=== PATIENT | female | born 1940 | race Caucasian/White ===

== ENCOUNTER 2017-09-28 21:46 | Observation (INO) | payer OTHER, MEDICARE ==
[~2017-09-28] VITALS: Ht 149.9 cm; Wt 73.1 kg
[~2017-09-28 21:46] MED LIST: BACTRIM DS 8001 TAB PO; FLAG500 PO; LIPITOR20 MG PO; LOPRESSOR 25MG25 MG PO; Zetia PO
--- NOTE | 2017-09-28 22:16 | ED AMS/SEIZURE/WEAK/DIZZY ---
See Addendum History of Present Illness General Chief Complaint: Altered Mental Status Stated Complaint: AMS Source: patient, family Exam Limitations: confusion Vital Signs & Intake/Output Vital Signs & Intake/Output Vital Signs Date Time Temp Pulse Resp B/P B/P Pulse O2 O2 Flow FiO2 Mean Ox Delivery Rate 09/28 2339 65 16 186/86 96 Room Air Room Air 09/28 2304 Room Air 09/28 2245 80 204/96 09/28 2210 98.1 80 24 204/96 99 Room Air Room Air Allergies Coded Allergies: Penicillins (Intermediate, HIVES 09/28/17) Reconcile Medications Atorvastatin (Atorvastatin Calcium) 20 MG TAB 20 MG PO 1700 Cholestrol Metoprolol Tartrate (Lopressor) 25 MG TAB 25 MG PO BID Heart health Metronidazole (Flagyl) 500 MG TAB 500 MG PO TID DOG BITE Sulfamethoxazole/Trimethopri (Bactrim Ds 800 MG-160 MG) 1 TAB TAB 1 TAB PO BID LEFT THIGH DOG BITE TAKE WTIH FOOD [Zetia] 10 MG PO 1700 Triage Note: PT BROUGHT DIRECTLY TO 6 FOR AMS. DAUGHTER TAVARES STATES THIS MORNING PT WAS CONFUSED ON THE DAY. PT RECENTLY HAD NECK PAIN AND RX BACLOFEN AND MELOXICAM 1 WEEK PRIOR AND APPEARS SHE HAS DOUBLED UP ON TAKING MELOXICAM. PT UNSURE WHERE SHE IS, SHE KNOWS THE MONTH, AND CAN'T REMEMBER THE PRESIDENT. Triage Nurses Notes Reviewed? yes Onset: Gradual Duration: constant Timing: single episode today Severity: moderate Severity Numbers: 5 No Modifying Factors: none HPI: patient is a 76-year-old female with a past medical history of hypertension and hyperlipidemia in which she presents emergency room with family where patient lives with her in the in law suite with her son and family and which history is limited due to patient having confusion however family indicates that approximately one week ago she was given meloxicam and baclofen for her neck discomfort and pain where today patient has concerns of confusion and is disoriented more than usual. FAMILY does indicate that there is been a slow progression of confusion however today significantly has worsened. No unilateral extremity weakness or slurred speech or facial droop. Family is concerned of the meloxicam and baclofen being taken incorrectly where they're concerned of 5 meloxicam's taken the past 24 hours instead of the baclofen which is 3 times a day in the meloxicam is 1 time a day where patient self administers the medications. Patient does complain of chest pain to the right chest wall earlier today however this has resolved. Denies any fever chills headache blurred vision current chest pain nausea vomiting dysuria hematuria. (Landon Merlos) Past History Medical History Any Pertinent Medical History? see below for history Cardiovascular: hypertension, hyperlipidemia Surgical History Surgical History: skin graft Psychosocial History What is your primary language Macedonian Family History Family History, If Any: MOTHER FH: myocardial infarction SISTER FH: brain tumor FATHER FH: colon cancer Hx Contributory? No (Landon Merlos) Review of Systems Review of Systems Constitutional: Reports: no symptoms. EENTM: Reports: no symptoms. Respiratory: Reports: no symptoms. Cardiovascular: Reports: see HPI, chest pain. GI: Reports: no symptoms. Genitourinary: Reports: no symptoms. Musculoskeletal: Reports: see HPI. Skin: Reports: no symptoms. Neurological/Psychological: Reports: see HPI. Hematologic/Endocrine: Reports: no symptoms. Immunologic/Allergic: Reports: no symptoms. All Other Systems: Reviewed and Negative (Landon Merlos) Physical Exam Physical Exam General Appearance: no apparent distress, alert Head: atraumatic Eyes: Bilateral: normal appearance, PERRL, EOMI. Ears, Nose, Throat: normal pharynx, normal ENT inspection Neck: normal inspection, supple, full range of motion Respiratory: normal breath sounds Cardiovascular: regular rate/rhythm Peripheral Pulses: 2+ radial (R) Gastrointestinal: normal bowel sounds, soft, non-tender Extremities: normal range of motion Neurologic/Psych: no motor/sensory deficits, awake, disoriented x 3 Skin: intact, normal color, warm/dry Core Measures ACS in differential dx? Yes CVA/TIA Diagnosis No Sepsis Present: No Sepsis Focused Exam Completed? No (Landon Merlos) Progress Differential Diagnosis: arrythmia, alcohol intoxication, anemia, benign positional vertigo, CVA/stroke, dehydration, drug intoxication, encephalitis, electrolyte imbalance, GI bleed, hypoglycemia, hypoxia, intracranial Hem., intracranial mass/tumor, labrynthitis, meningitis, Meniere's disease, migraine [place], multiple sclerosis, pneumonia, postural hypotension, presyncope, post- traumatic vertigo, sepsis, seizure disorder, subarachnoid Hem., UTI/pyelo, vertebrobasilar insuff Plan of Care: Orders Procedure Date/time Status Heart Healthy Diet 09/[address] in observation 09/29 56 Active ED Holding Orders 09/29 005 Active Vital Signs 09/29 56 Active Code Status 09/29 005 Active Patient Data 09/29 0039 Active URINALYSIS 09/29 2227 Active TROPONIN LEVEL 09/29 2227 Complete D-DIMER 09/29 2227 Complete COMPREHENSIVE METABOLIC PANEL 09/29 2227 Complete CBC WITHOUT DIFFERENTIAL 09/29 2227 Complete EKG 09/28 2149 Active Laboratory Tests 09/28/17 2359: Urine Color Pending, Urine Clarity Pending, Urine pH Pending, Ur Specific [place] Pending, Urine Protein Pending, Urine Ketones Pending, Urine Nitrite Pending, Urine Bilirubin Pending, Urine Urobilinogen Pending, Ur Leukocyte Esterase Pending, Ur Microscopic Pending, Urine Hemoglobin Pending, Urine Glucose Pending 09/28/17 2235: Anion Gap 9, Estimated GFR > 60, BUN/Creatinine Ratio 30.0 H, Glucose 113 H, Calcium 9.1, Total Bilirubin 0.4, AST 27, ALT 26, Alkaline Phosphatase 73, Troponin I 0.05, Total Protein 6.6, Albumin 3.6, Globulin 3.0, Albumin/Globulin Ratio 1.2, D-Dimer High Sensitivty < 200, CBC w Diff NO MAN DIFF REQ, RBC 4.72, MCV 91.4, MCH 30.3, MCHC 33.2, RDW 13.6, MPV 8.8, Gran % 44.7, Lymphocytes % 45.2, Monocytes % 6.8, Eosinophils % 2.9, Basophils % 0.4, Absolute Granulocytes 3.2, Absolute Lymphocytes 3.3, Absolute Monocytes 0.5, Absolute Eosinophils 0.2, Absolute Basophils 0 Patient is disoriented 3 however is following all commands appropriately no signs of neurovascular deficit Due to history of has noticing exam findings or suspicion of adverse drug interaction due to the recently prescribed baclofen Blood work imaging was all unremarkable Patient will be placed in observation Diagnostic Imaging: Viewed by Me: Radiology Read, CT Scan. Radiology Impression: no acute abnormality, no fracture Initial ED EKG: normal intervals, normal p-waves, normal QRS complex, 84 BPM,NSR Comments: PATIENT: TIMOTHY SMITH PRESENT AGE: 76 PATIENT ACCOUNT NO: [id number] : 38 LOCATION: [facility] ORDERING PHYSICIAN: Landon JORDAN SERVICE DATE: 09/28/17 EXAM TYPE: RAD - XRY-CHEST XRAY, TWO VIEWS EXAMINATION: XR CHEST CLINICAL INFORMATION: Chest pain. COMPARISON: Chest x-ray 01/20/2015 TECHNIQUE: 2 views of the chest were obtained. FINDINGS: No significant abnormality is noted involving the heart, lungs, mediastinum, bony thorax or soft tissues. IMPRESSION: Unremarkable examination. DICTATED BY: Capo Dunlap MD DATE/TIME DICTATED:09/28/172319 EDGE RUNNER:FRANK (Rich JORDAN,Landon) Departure Departure Disposition: STILL A PATIENT Condition: Stable Clinical Impression Primary Impression: Altered mental state Secondary Impressions: Adverse drug interaction Referrals: Sabino Finch MD (PCP/Family) Departure Forms: Customer Survey General Discharge Information Observation Note Spoke With: Kenzie Quijano MD Physician Advisor Notified: ANDERSON RECINOS DO Place Patient In: Non-ED OBS Care Area Rationale for Observation: My rational for observation is as follows [patient requires observation for concerns of adverse drug interaction and altered mental status urine still pending patient may require case management consultation home health aides neurology consultation geriatric psych consultation]. (Landon Merlos) Observation Note Rationale for Observation: My rational for observation is as follows The patient had an episode of chest pain earlier today and has been confused. EKG shows nonspecific ST-T wave abnormality but somewhat changed. She is therefore being placed in observation and on telemetry. I have seen the patient and personally examined her and I agree with the PAs evaluation (Anderson Recinos DO)
[2017-09-28 22:44] LABS: ABSOLUTE BASOPHIL COUNT 0 /CUMM (0.0-0.2); ABSOLUTE EOSINOPHIL COUNT 0.2 /CUMM (0.0-0.7); ABSOLUTE GRANULOCYTE CT 3.2 /CUMM (1.4-6.5); ABSOLUTE LYMPH COUNT 3.3 /CUMM (1.2-3.4); ABSOLUTE MONOCYTE COUNT 0.5 /CUMM (0.10-0.60); BASOPHIL % 0.4 % (0.0-2.0); EOSINOPHIL % 2.9 % (0-5); GRANULOCYTE % 44.7 % (42.2-75.2); HEMATOCRIT 43.1 % (37-47); MEAN CORPUSCULAR HGB 30.3 PG (27.0-31.0); MEAN CORPUSCULAR HGB CONC 33.2 G/DL (33.0-37.0); MEAN CORPUSCULAR VOLUME 91.4 FL (81.0-99.0); MEAN PLATELET VOLUME 8.8 FL (7.4-10.4); PLATELET COUNT 276 /CUMM (130-400); RBC DISTRIBUTION WIDTH 13.6 % (11.5-14.5); RED BLOOD CELL CT 4.72 /CUMM (4.20-5.40); WHITE BLOOD CELL COUNT 7.2 /CUMM (4.8-10.8)
--- NOTE | 2017-09-28 23:24 | RADIOLOGY REPORT ---
EXAMINATION: XR CHEST CLINICAL INFORMATION: Chest pain. COMPARISON: Chest x-ray 01/20/2015 TECHNIQUE: 2 views of the chest were obtained. FINDINGS: No significant abnormality is noted involving the heart, lungs, mediastinum, bony thorax or soft tissues. IMPRESSION: Unremarkable examination.
--- NOTE | 2017-09-28 23:39 | CT SCAN REPORT ---
EXAMINATION: CT HEAD WITHOUT CONTRAST CLINICAL INFORMATION: Altered mental status. Confusion. COMPARISON: None TECHNIQUE: Contiguous axial imaging was performed from the skull base to vertex without intravenous administration of contrast. DLP: 615.61 mGy-cm FINDINGS: There is no evidence of acute intracranial hemorrhage or territorial infarction. No abnormal mass effect or midline shift is seen. D Eanda to white matter differentiation is well preserved. No extra-axial fluid collections are identified. There is vascular calcifications of the internal carotid arteries at the carotid artery siphon bilaterally. The ventricles are normal in size. There is no abnormal attenuation within the brain parenchyma. The osseous structures and soft tissues are normal. The mastoid air cells and visualized portions of the paranasal sinuses are well aerated. IMPRESSION: No acute intracranial pathology.
--- NOTE | 2017-09-29 00:14 | History & Physical ---
General Information and HPI Allergies/Medications Allergies: Coded Allergies: Penicillins (Intermediate, HIVES 09/28/17) Home Med list Atorvastatin (Atorvastatin Calcium) 20 MG TAB 20 MG PO 1700 Cholestrol Metoprolol Tartrate (Lopressor) 25 MG TAB 25 MG PO BID Heart health Metronidazole (Flagyl) 500 MG TAB 500 MG PO TID DOG BITE Sulfamethoxazole/Trimethopri (Bactrim Ds 800 MG-160 MG) 1 TAB TAB 1 TAB PO BID LEFT THIGH DOG BITE TAKE WTIH FOOD [Zetia] 10 MG PO 1700 Past History Travel History Traveled to [place] past 21 day No Medical History Cardiovascular: hypertension, hyperlipidemia Surgical History Surgical History: skin graft Past Family/Social History Family History Relations & Conditions if any MOTHER FH: myocardial infarction SISTER FH: brain tumor FATHER FH: colon cancer Psychosocial History Who Do You Live With? spouse Functional Ability ADLs Independent: dressing, eating, toileting, bathing. IADLs Independent: shopping, housework, finances, food prep, telephone, transportation , medication admin. Core Measures/Misc (12/26) Cerebrovascular Accident CVA/TIA Diagnosis: No Sepsis (View protocol) If YES complete Sepsis Event Note If YES complete Sepsis Event Note
--- NOTE | 2017-09-29 01:09 | History & Physical ---
[place]on 09/29/17 0106: General Information and HPI History of Present Illness: 76 YO F, Hebrew speaking with PMH of HTN and HLD was brought to ED by her family with chief complaint of altered mental status and right-sided chest pain for last couple of days. Patient is Hebrew speaking and she can barely understand Bhutanese. Her [id number] was translating for her. Most of her history was given by the family members. According to family members one-week pack patient reported having neck pain and her primary care physician prescribed her meloxicam and baclofen to relieve her pain. Patient was supposed to take meloxicam every day and baclofen 3 times a day. By mistake patient took 5 pills of baclofen in 24 hours. After that according to the family members patient was found to have confusion and disorientation. Later on patient also reported having right-sided chest pain that relieved by its own. Patient denied any chest pain during admission, nausea, vomiting, palpitation, weakness, numbness, tingling, slurring of speech, chills, fever, abdominal pain, diarrhea, constipation and dysuria. Her last echocardiogram was done in 2014 that showed ejection fraction 6065 percent. Last time patient was admitted to [facility] in 2014 with complain of chest pain that resolved upon admission with Nitrostat, she was admitted last on telemetry floor under observation. On last admission patient's troponins remained negative. ED course: Vitals: Temp 98.0, pulse 80/min, respiratory rate 24/min, blood pressure 204/96, oxygen saturation 99% on room air Labs: WBC count 7.2, hemoglobin 14.3, hematocrit 43.1,. Count 276, sodium 137, potassium 4.4, BUN 24, creatinine 0.8, BUN/creatinine ratio 30.0, glucose 113, calcium 9.1, and and 9, total bilirubin 0.4, AST 27, ALT 26, troponin 0.05 Allergies/Medications Allergies: Coded Allergies: Penicillins (Intermediate, HIVES 09/28/17) Home Med list Baclofen 10 MG TABLET 1 TAB PO TID NECK PAIN (Reported) Ezetimibe (Zetia) 10 MG TABLET 1 TAB PO DAILY HLD (Reported) Meloxicam 15 MG TABLET 1 TAB PO DAILY PAIN (Reported) Metoprolol Tartrate 25 MG TABLET 1 TAB PO BID HTN (Reported) Simvastatin (Simvastatin*) 40 MG TABLET 1 TAB PO QPM HLD (Reported) Past History Travel History Traveled to [place] past 21 day No Medical History Cardiovascular: hypertension, hyperlipidemia Surgical History Surgical History: skin graft Past Family/Social History Family History Relations & Conditions if any MOTHER FH: myocardial infarction SISTER FH: brain tumor FATHER FH: colon cancer Psychosocial History Who Do You Live With? spouse Functional Ability ADLs Independent: dressing, eating, toileting, bathing. IADLs Independent: shopping, housework, finances, food prep, telephone, transportation , medication admin. Review of Systems Review of Systems Constitutional: Denies: chills, diaphoresis, fever, weakness. EENTM: Reports: no symptoms. Cardiovascular: Denies: chest pain, orthopena, palpitations, syncope. Respiratory: Denies: cough, orthopnea, short of breath, sputum production, wheezing. GI: Denies: abdominal pain, diarrhea, nausea, vomiting. Genitourinary: Denies: discharge, frequency, hematuria, pain. Musculoskeletal: Reports: see HPI. Skin: Reports: no symptoms. Neurological/Psychological: Reports: see HPI. Exam & Diagnostic Data Last 24 Hrs of Vital Signs/I&O Vital Signs Date Time Temp Pulse Resp B/P B/P Pulse O2 O2 Flow FiO2 Mean Ox Delivery Rate 09/29 0124 98.3 52 18 180/76 95 Room Air 09/28 2339 65 16 186/86 96 Room Air Room Air 09/28 2304 Room Air 09/28 2245 80 204/96 09/28 2210 98.1 80 24 204/96 99 Room Air Room Air Physical Exam General Appearance Alert, Oriented X3, Cooperative, No Acute Distress Skin No Rashes Skin Temp/Moisture Exam: Warm/Dry Sepsis Skin Exam (color): Normal for Ethnicity HEENT Atraumatic, PERRLA, EOMI Neck Supple Cardiovascular Normal S1, Normal S2 Lungs Clear to Auscultation, Normal Air Movement Abdomen Normal Bowel Sounds, Soft, No Tenderness Neurological Normal Speech, Strength at 5/5 X4 Ext, Normal Tone, Sensation Intact Extremities No Edema Assessment/Plan Assessment: 76 YO F, Hebrew speaking with PMH of HTN and HLD was brought to ED by her family with chief complaint of altered mental status and right-sided chest pain for last couple of days. We will keep the patient under observation on telemetry floor. Atypical chest pain: -Patient was complaining of right-sided chest pain that resolved by its own. Considering patient's cardiac risk factors including hypertension and hyperlipidemia, we will keep the patient under observation on telemetry floor and monitored for any acute ischemic cardiac injury. -Serial EKGs and troponin to rule out acute ischemic cardiac injury. -We will check her HbA1c and lipid panel -Cardiac consultation am -Echocardiogram in a.m. -Continue Lipitor and metoprolol Hypertensive urgency: -On admission patient's blood pressure was 204/96 -We will continue her metoprolol -We will monitor her blood pressure and if it's not under control we will consider to change her medications. Altered mental status: -Her confusion has been resolved -We will hold her baclofen and meloxicam -We will check vitamin B12 and folic acid levels -PT evaluation in a.m. Neck pain: -Possibly musculoskeletal pain -We will give her Motrin History of hyperlipidemia: -Continue her Lipitor and ezitimibe DVT prophylaxis: Mechanical and subcutaneous heparin CODE STATUS: Full code As Ranked By This Provider Problem List: 1. Altered mental state 2. Atypical chest pain 3. Hypertensive urgency Core Measures/Misc (12/26) Acute Coronary Syndrome ACS Diagnosis: No Congestive Heart Failure Congestive Heart Failure Diagnosis No Cerebrovascular Accident CVA/TIA Diagnosis: No VTE (View Protocol) VTE Risk Factors Age>40 No Mechanical VTE Prophylaxis d/t N/A MechProphylax Ordered No VTE Pharm Prophylaxis d/t NA PharmProphylax ordered Sepsis (View protocol) Sepsis Present: No If YES complete Sepsis Event Note If YES complete Sepsis Event Note Garfield Cline MD 09/29/17 0137: Core Measures/Misc (12/26) Sepsis (View protocol) If YES complete Sepsis Event Note If YES complete Sepsis Event Note Resident Review Statement Resident Statement: examined this patient, discussed with internet developer, agreed with internet developer Other Findings: History of Present Illness 76-year-old woman with past medical history of hypertension and hyperlipidemia brought in by family members for altered mental status. Patient reportedly received baclofen and meloxicam on 09/21/17 for complaints of neck pain by her PCP. Patient reportedly took extra doses of baclofen resulting in confusion. Patient reportedly has been progressively more confused over the past 5 years but is markedly more so today. For concern of the symptoms patient was brought to the [place] ED for evaluation. Patient reportedly experienced a brief episode of chest pain that was self- limited. Presently patient states that she feels well and has no complaints. Review of Systems Otherwise she denies any headache, fever, chills, blurred / double vision, lightheadedness, dizziness, numbness, tingling, weakness, chest pain, palpitations, heartburn, shortness of breath, cough, nausea, vomiting, diarrhea, constipation, urinary symptoms. Objective Vitals-Temp 98.1, HR 65-80, RR 16-24, SBP 186-204, O2 96-99% on room air Physical Exam -General: Well developed, well nourished elderly Hebrew woman in no acute distress -HEENT: NCAT, PERRL, EOMI, anicteric sclera, moist mucous membranes -Neck: Supple, no JVD/HJR, no bruits, trachea midline, no accessory respiratory muscle use -Cardio: Normal S1/S2 without murmurs, gallops, or rub; regular rate and rhythm -Pulmonary: Clear to auscultation bilaterally -Abdomen: Soft, non-tender, non-distended, bowel sounds intact -Neuro: Awake and alert, Hebrew speaking, CN II-XII grossly intact -Extremities: Normal pulses, no edema Labs / Imaging / Studies -CBC: WBC 7.2, hemoglobin 14.3, hematocrit 43.1, platelet 270 -BMP: Sodium 137, potassium 4.4, chloride 102, CO2 26, BUN 24, creatinine 0.8, anion gap 9, glucose 113 -LFT: Within normal limit -Misc: D-dimer <200, troponin I 0.05 -UA: Unremarkable -CXR: Unremarkable -EKG: Nonspecific ST-T wave changes in lateral leads -CT head without IV contrast: No acute intracranial pathology Assessment 76-year-old woman with multiple medical problems and progressively worsening mental status seen for evaluation of acute altered mental status. Presently patient feels well and has no complaints. Vital signs are significant for an elevated systolic blood pressure ranging 186-204. Physical exam is grossly unremarkable including a normal neurologic examination. Labs including CBC, serum chemistry, and hepatic function panel are within normal limits; additionally d-dimer is <200 and troponin I is 0.05. Urinalysis is unremarkable. Chest x-ray and CT head are unremarkable. EKG demonstrates nonspecific ST-T wave changes in the lateral leads. Clinically patient appears to have acute worsening of her mental state secondary to excessive use of baclofen. Patient is to be placed under observation on the telemetry floor to rule out any acute coronary syndrome and for further evaluation of her altered mental status. Problem list -Altered mental status, now resolved; likely secondary to excessive baclofen use -neck pain, probable musculoskeletal strain -Recent chest pain with nonspecific EKG changes, unlikely acute coronary syndrome -Hypertensive urgency -Hypertension -Hyperlipidemia Plan -Place under observation on telemetry floor -Telemetry monitoring -Closely monitor blood pressure -Hold baclofen -Continue home meds: Simvastatin, metoprolol, meloxicam, Zetia -PT evaluation -Trend troponin/EKG until peak or 3 negative sets -Transthoracic echocardiogram -Check TSHR, B12, folate, HbA1c, lipid panel, Vitamin D -Pain control with acetaminophen -Regular diet -DVT prophylaxis with subcutaneous heparin -Full code Kenzie Quijano MD 09/29/17 0154: Core Measures/Misc (12/26) Sepsis (View protocol) If YES complete Sepsis Event Note If YES complete Sepsis Event Note Attending MD Review Statement Attending Statement Attending MD Statement: examined this patient, discuss w/resident/PA/DEPARTMENT HELPER, agreed w/resident/PA/DEPARTMENT HELPER, reviewed EMR data (avail) Attending Assessment/Plan: 76F PMH HTN, HLD presenting with altered mental status. Per family at bedside, patient has been steadily deteriorating in mental status for the past few years, manifesting as memory lapses. One week ago, she had complained of neck pain to her PCP, who had prescribed her Baclofen 10mg TID and Meloxicam daily. The patient has been taking them, and family has noticed that she has been a bit more confused lately. However, this afternoon, she became acutely confused, not knowing the date, where she was, or events that had occurred earlier in the day. After counting her Baclofen, it was discovered that she may have taken too many, as there is a 7 pill discrepancy from what she should have left. The patient is pleasantly confused, A&Ox1 (self), and offers no complaints. On exam there is no neurological deficit. Per daughter, the patient is improved from a few hours ago. Labs unremarkable. Placed on tele due to questionable ST depressions in leads V3-V4. Plan: Observation in telemetry, stop Baclofen or any other delirium inducing medications, check UA and TSH, neuro checks, continue home Metoprolol and Simvastatin (both have not been filled in some time), DVT PPx.
[2017-09-29] MEDS ORDERED: MELOXICAM15 M1 PO (01:13)
[2017-09-29] MEDS ORDERED: BACLOFEN10 M1 PO (01:13)
[2017-09-29] MEDS ORDERED: METOPROLOL TART25 M1 PO (01:14)
[2017-09-29] MEDS ORDERED: SIMVASTATIN40 M1 PO (01:14)
[2017-09-29] MEDS ORDERED: ZETIA10 M1 PO (01:14)
[2017-09-29 04:46] LABS: ABSOLUTE BASOPHIL COUNT 0.1 /CUMM (0.0-0.2); ABSOLUTE EOSINOPHIL COUNT 0.1 /CUMM (0.0-0.7); ABSOLUTE GRANULOCYTE CT 4.7 /CUMM (1.4-6.5); ABSOLUTE MONOCYTE COUNT 0.5 /CUMM (0.10-0.60); BASOPHIL % 0.6 % (0.0-2.0); EOSINOPHIL % 1.7 % (0-5); GRANULOCYTE % 56.4 % (42.2-75.2); HEMATOCRIT 42.6 % (37-47); MEAN CORPUSCULAR HGB 30.8 PG (27.0-31.0); MEAN CORPUSCULAR HGB CONC 33.4 G/DL (33.0-37.0); MEAN CORPUSCULAR VOLUME 92.1 FL (81.0-99.0); MEAN PLATELET VOLUME 9.3 FL (7.4-10.4); PLATELET COUNT 269 /CUMM (130-400); RBC DISTRIBUTION WIDTH 13.5 % (11.5-14.5); RED BLOOD CELL CT 4.62 /CUMM (4.20-5.40); WHITE BLOOD CELL COUNT 8.4 /CUMM (4.8-10.8)
[2017-09-29 06:50] VITALS: BP 146/60
--- NOTE | 2017-09-29 08:42 | Cons- Cardiology ---
General Information and HPI Consulting Request Date of Consult: 09/29/17 Requested By: Kenzie Quijano MD Reason for Consult: Chest pain History of Present Illness: The patient is a 76-year-old female with history of hypertension and hyperlipidemia who was brought to the hospital by her family because of altered mental status and right-sided chest pain. The chest pain is a right-sided sharp pain with radiation to the neck. The patient was noted by her family to have confusion and disorientation for the past few days. The chest pain has resolved and she is pain-free now. The patient was recently having neck pain, and her primary care physician prescribed meloxicam and baclofen. She accidentally took 5 baclofen tablets rather than the 3 per day which were prescribed. No shortness of breath. No palpitations. No diaphoresis. No nausea or vomiting. Allergies/Medications Allergies: Coded Allergies: Penicillins (Intermediate, HIVES 09/28/17) Home Med List: Baclofen 10 MG TABLET 1 TAB PO TID NECK PAIN (Reported) Ezetimibe (Zetia) 10 MG TABLET 1 TAB PO DAILY HLD (Reported) Meloxicam 15 MG TABLET 1 TAB PO DAILY PAIN (Reported) Metoprolol Tartrate 25 MG TABLET 1 TAB PO BID HTN (Reported) Simvastatin (Simvastatin*) 40 MG TABLET 1 TAB PO QPM HLD (Reported) Current Medications: Current Medications Sig/Fernando Start time Last Medication Dose Route Stop Time Status Admin Acetaminophen 650 MG Q6P PRN 09/29 0145 AC 09/29 PO 1544 Aspirin 81 MG DAILY 09/30 0900 AC PO Aspirin 325 MG .STK-MED ONE 09/29 1612 DC PO 09/29 1613 Aspirin 325 MG ONCE ONE 09/29 1600 DC 09/29 PO 09/29 1601 1602 Atorvastatin Calcium 20 MG 1700 09/29 1700 AC 09/29 PO 1604 Ezetimibe 10 MG DAILY 09/29 0900 AC 09/29 PO 0825 Heparin Sodium 5,000 UNIT Q8 09/29 06 AC 09/29 (Porcine) SC 1404 Ibuprofen 400 MG Q6P PRN 09/29 0130 DC PO Lorazepam 0.5 MG ONCE ONE 09/29 1715 DC IV 09/29 1716 Metoprolol Tartrate 25 MG BID 09/29 0900 AC 09/29 PO 0825 Metoprolol Tartrate 25 MG ONCE ONE 09/28 2230 DC 09/28 PO 09/28 2231 2245 Metoprolol Tartrate 0 .STK-MED ONE 09/28 2230 DC PO Morphine Sulfate 1 MG Q6P PRN 09/29 1630 AC 09/29 IV 1628 Nitroglycerin 1 GM .STK-MED ONE 09/29 1612 DC TOP 09/29 1613 Nitroglycerin 0.5 GM ONCE ONE 09/29 1600 [facility] 09/29 1601 Nitroglycerin 0.4 MG Q 5 MINUTES X 3 DO.. 09/29 1600 AC 09/29 SL 1607 Review of Systems Review of Systems: No rash. No tremor. No fever. No chills. All other systems were reviewed, and were noted to be negative. Past History Travel History Traveled to [place] past 21 day No Medical History Cardiovascular: hypertension, hyperlipidemia Surgical History Surgical History: skin graft Family History Relations & Conditions If Any: MOTHER FH: myocardial infarction SISTER FH: brain tumor FATHER FH: colon cancer Psychosocial History Who Do You Live With? spouse Smoking Status: Never Smoked Functional Ability ADLs Independent: dressing, eating, toileting, bathing. IADLs Independent: shopping, housework, finances, food prep, telephone, transportation , medication admin. Exam & Diagnostic Data Vital Signs and I&O Vital Signs Date Time Temp Pulse Resp B/P B/P Pulse O2 O2 Flow FiO2 Mean Ox Delivery Rate 09/29 1400 97.4 53 20 142/70 96 09/29 0825 66 146/60 09/29 0650 97.5 62 18 146/60 97 Room Air 09/29 0324 97 Room Air 09/29 0124 98.3 52 18 180/76 95 Room Air 09/28 2339 65 16 186/86 96 Room Air Room Air 09/28 2304 Room Air 09/28 2245 80 204/96 09/28 2210 98.1 80 24 204/96 99 Room Air Room Air Intake & Output 09/29 1600 09/29 0800 09/29 0000 09/28 1600 09/28 0809/28 0000 Intake Total 550 220 Output Total 900 450 Balance -350 -230 Intake, Oral 550 220 Output, Urine 900 450 Patient 161 lb Weight Physical Exam: Gen: The patient is in no acute distress HEENT: Normal nose, ears, and oropharynx. Pupils equal bilaterally. Conjunctiva normal. Neck: Supple with no JVD, no masses, and no thyromegaly Lungs: Clear to auscultation with normal respiratory effort Heart: RRR, S1, S2, no murmurs. No peripheral edema, 2+ pulses in the lower extremities bilaterally Abdomen: Soft, nontender, no masses. No hepatomegaly. No splenomegaly Extremities: No clubbing or cyanosis. Normal muscle strength in the upper and lower extremities Skin: Normal skin turgor with no skin ulcers or lesions noted. Neuro: Cranial nerves intact. Sensation intact Psych: Alert and oriented x 3 with appropriate affect Labs/Indra Results: Laboratory Tests 09/29 09/29 09/29 1542 1255 0430 Chemistry Sodium (137 - 145 mmol/L) 143 Potassium (3.5 - 5.1 mmol/L) 4.3 Chloride (98 - 107 mmol/L) 109 H Carbon Dioxide (22 - 30 mmol/L) 27 Anion Gap (5 - 16) 7 BUN (7 - 17 mg/dL) 19 H Creatinine (0.5 - 1.0 mg/dL) 0.8 Estimated GFR (>60 ml/min) > 60 BUN/Creatinine Ratio (7 - 25 %) 23.8 Magnesium (1.6 - 2.3 mg/dL) 1.8 Troponin I (< 0.11 ng/ml) 0.06 0.06 0.09 Hematology CBC w Diff NO MAN DIFF REQ WBC (4.8 - 10.8 /CUMM) 8.4 RBC (4.20 - 5.40 /CUMM) 4.62 Hgb (12.0 - 16.0 G/DL) 14.2 Hct (37 - 47 %) 42.6 MCV (81.0 - 99.0 FL) 92.1 MCH (27.0 - 31.0 PG) 30.8 MCHC (33.0 - 37.0 G/DL) 33.4 RDW (11.5 - 14.5 %) 13.5 Plt Count (130 - 400 /CUMM) 269 MPV (7.4 - 10.4 FL) 9.3 Gran % (42.2 - 75.2 %) 56.4 Lymphocytes % (20.5 - 51.1 %) 35.6 Monocytes % (1.7 - 9.3 %) 5.7 Eosinophils % (0 - 5 %) 1.7 Basophils % (0.0 - 2.0 %) 0.6 Absolute Granulocytes (1.4 - 6.5 /CUMM) 4.7 Absolute Lymphocytes (1.2 - 3.4 /CUMM) 3.0 Absolute Monocytes (0.10 - 0.60 /CUMM) 0.5 Absolute Eosinophils (0.0 - 0.7 /CUMM) 0.1 Absolute Basophils (0.0 - 0.2 /CUMM) 0.1 09/28 2359 Urines Urine Color (YEL,AMB,STR) STRAW Urine Clarity (CLEAR) CLEAR Urine pH (5.0 - 8.0) 6.5 Ur Specific [place] (1.001 - 1.035) <= 1.005 Urine Protein (NEG,<30 MG/DL) NEG Urine Ketones (NEG) NEG Urine Nitrite (NEG) NEG Urine Bilirubin (NEG) NEG Urine Urobilinogen (0.1 - 1.0 EU/dl) 0.2 Ur Leukocyte Esterase (NEG) NEG Ur Microscopic EXAM NOT REQUIRED Urine Hemoglobin (NEG) NEG Urine Glucose (N MG/DL) NEG 09/28 2235 Chemistry Sodium (137 - 145 mmol/L) 137 Potassium (3.5 - 5.1 mmol/L) 4.4 Chloride (98 - 107 mmol/L) 102 Carbon Dioxide (22 - 30 mmol/L) 26 Anion Gap (5 - 16) 9 BUN (7 - 17 mg/dL) 24 H Creatinine (0.5 - 1.0 mg/dL) 0.8 Estimated GFR (>60 ml/min) > 60 BUN/Creatinine Ratio (7 - 25 %) 30.0 H Glucose (65 - 99 mg/dL) 113 H Hemoglobin A1c (4.2 - 5.8 %) 6.0 H Calcium (8.4 - 10.2 mg/dL) 9.1 Total Bilirubin (0.2 - 1.3 mg/dL) 0.4 AST (14 - 36 U/L) 27 ALT (9 - 52 U/L) 26 Alkaline Phosphatase (<127 U/L) 73 Troponin I (< 0.11 ng/ml) 0.05 Total Protein (6.3 - 8.2 g/dL) 6.6 Albumin (3.5 - 5.0 g/dL) 3.6 Globulin (1.9 - 4.2 gm/dL) 3.0 Albumin/Globulin Ratio (1.1 - 2.2 %) 1.2 Triglycerides (<150 mg/dL) 122 Cholesterol (<200 MG/DL) 236 H LDL Cholesterol, Calc (65 - 129 mg/dL) 148 H HDL Cholesterol (40 - 60 mg/dL) 64 H Cholesterol/HDL Ratio (0.00 - 4.23 %) 4 Vitamin B12 (239 - 931 pg/mL) 359 25-OH Vitamin D Total (30 - 100 ng/ml) 16.4 L Folate (2.76 - 20.0 ng/mL) > 20.0 H TSH &T3 &Free T4 Intrp (0.270 - 4.20 uIU/mL) 4.050 Coagulation D-Dimer High Sensitivty (0 - 243 ng/ml) < 200 Hematology CBC w Diff NO MAN DIFF REQ WBC (4.8 - 10.8 /CUMM) 7.2 RBC (4.20 - 5.40 /CUMM) 4.72 Hgb (12.0 - 16.0 G/DL) 14.3 Hct (37 - 47 %) 43.1 MCV (81.0 - 99.0 FL) 91.4 MCH (27.0 - 31.0 PG) 30.3 MCHC (33.0 - 37.0 G/DL) 33.2 RDW (11.5 - 14.5 %) 13.6 Plt Count (130 - 400 /CUMM) 276 MPV (7.4 - 10.4 FL) 8.8 Gran % (42.2 - 75.2 %) 44.7 Lymphocytes % (20.5 - 51.1 %) 45.2 Monocytes % (1.7 - 9.3 %) 6.8 Eosinophils % (0 - 5 %) 2.9 Basophils % (0.0 - 2.0 %) 0.4 Absolute Granulocytes (1.4 - 6.5 /CUMM) 3.2 Absolute Lymphocytes (1.2 - 3.4 /CUMM) 3.3 Absolute Monocytes (0.10 - 0.60 /CUMM) 0.5 Absolute Eosinophils (0.0 - 0.7 /CUMM) 0.2 Absolute Basophils (0.0 - 0.2 /CUMM) 0 Diagnostic Data EKG Results EKG tracing is apparently reviewed, and reveals normal sinus rhythm at [address] abnormal CXR Results Negative Other Results Head CT 09/28/17: Negative Echocardiogram 09/29/17: Normal global left ventricular size, wall thickness, systolic function with no obvious regional wall motion abnormalities. Left ventricular ejection fraction is estimated at >65 %. Abnormal relaxation filling pattern of the left ventricle for age (stage 1 diastolic dysfunction). The left atrium is normal in size. Mild thickening/calcification of the mitral valve leaflets. Mild mitral annular calcification. Trace mitral regurgitation. Focal thickening of the aortic valve cusps. No aortic stenosis. Trace aortic regurgitation. Pulmonary artery systolic pressure is normal. The aortic arch and great vessels are not well seen. Assessment/Plan Assessment/Plan The patient is a 76-year-old female who presented with mental status changes and chest discomfort. Initial 3 troponin levels were negative. Echocardiogram was negative. Mild ST changes were noted on EKG. She had recurrent chest pain tonight which eventually resolved after 3 nitroglycerin tablets and IV morphine. Recommendations: * Would repeat troponin 2 given the recurrent chest pain today * Continue aspirin * Continue metoprolol * If troponin levels are negative and the patient is clinically stable, would recommend discharge tomorrow with plans for outpatient stress testing Consult Acknowledgment - Thank you for your consult request.
--- NOTE | 2017-09-29 11:16 | PN- Att Addend ---
Attending Addendum Attending Brief Note Patient seen and examined with the entire team. She is primarily Pakistani speaking female with a past medical history of hypertension and hyperlipidemia. She was recently prescribed baclofen and meloxicam and came here with uncontrolled hypertension and confusion. Given the number of baclofen pills that were left, the thought is that she was taking more than that was prescribed and that this is a toxic encephalopathy secondary to the medication. She is more awake and alert right now but continues to feel dizzy. 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 We'll confirm with her daughter regarding her mentation. She is in observation status and if her echo is okay, her pressure is okay and mentation improves then she'll likely be a discharge in the next 24 hours.
--- NOTE | 2017-09-29 12:54 | ECHOCARDIOGRAM REPORT ---
TIMOTHY SMITH Age: 76 : 1940 Gender: F Exam Date: 09/29/2017 09:39 Exam Location: [address] [facility] Ht (in): 63 Wt (lb): 135 BSA: 1.66 BP: 146 / 60 Ordering Physician: Garfield Cline MD Referring Physician: Garfield Cline MD Technologist: Mark Holland [facility] Room Number: 174-1 Indications: Chest Pain Rhythm: Sinus Technical Quality: Fair FINDINGS Left Ventricle Normal global left ventricular size, wall thickness, systolic function with no obvious regional wall motion abnormalities. Left ventricular ejection fraction is estimated at >65 %. Abnormal relaxation filling pattern of the left ventricle for age (stage 1 diastolic dysfunction). Right Ventricle The right ventricle is normal in size and function. Right Atrium The right atrium is normal in size. Left Atrium The left atrium is normal in size. The interatrial septum is intact. Mitral Valve Mild thickening/calcification of the mitral valve leaflets. Mild mitral annular calcification. Trace mitral regurgitation. Aortic Valve Focal thickening of the aortic valve cusps. No aortic stenosis. Trace aortic regurgitation. Tricuspid Valve The tricuspid valve is normal in structure and function. There is tricuspid regurgitation. Pulmonary artery systolic pressure is normal. Pulmonic Valve Structurally normal pulmonic valve. There is no pulmonic regurgitation. Pericardium Normal pericardium without effusion. No pleural effusion. Great Vessels Normal aortic root dimension. The aortic arch and great vessels are not well seen. CONCLUSIONS Normal global left ventricular size, wall thickness, systolic function with no obvious regional wall motion abnormalities. Left ventricular ejection fraction is estimated at >65 %. Abnormal relaxation filling pattern of the left ventricle for age (stage 1 diastolic dysfunction). The left atrium is normal in size. Mild thickening/calcification of the mitral valve leaflets. Mild mitral annular calcification. Trace mitral regurgitation. Focal thickening of the aortic valve cusps. No aortic stenosis. Trace aortic regurgitation. Pulmonary artery systolic pressure is normal. The aortic arch and great vessels are not well seen. Alfonso Williamson M.D. (Electronically Signed) Final Date: 29 September 2017 12:53 MEASUREMENTS (Male / Female) Normal Values 2D ECHO LV Diastolic Diameter PLAX 4.5 cm 4.2 - 5.9 / 3.9 - 5.3 cm LV Systolic Diameter PLAX 2.8 cm 2.1 - 4.0 cm LV Fractional Shortening PLAX 37.8 % 25 - 46 % LV Ejection Fraction 2D Teich 68.0 % IVS Diastolic Thickness 0.9 cm LVPW Diastolic Thickness 0.9 cm LV Relative Wall Thickness 0.4 RV Internal Dim ED PLAX 3.2 cm 1.9 - 3.8 cm LVOT Diameter 1.9 cm Aortic Root Diameter 2.6 cm LA Systolic Diameter LX 3.1 cm 3.0 - 4.0 / 2.7 - 3.8 cm Ascending Aorta Diameter 2.7 cm DOPPLER AV Peak Velocity 141.0 cm/s AV Peak Gradient 8.0 mmHg AV Mean Velocity 91.0 cm/s AV Mean Gradient 4.0 mmHg AV Velocity Time Integral 34.1 cm LVOT Peak Velocity 89.5 cm/s LVOT Peak Gradient 3.2 mmHg LVOT Mean Velocity 57.4 cm/s LVOT Mean Gradient 2.0 mmHg LVOT Velocity Time Integral 21.0 cm LVOT Stroke Volume 59.5 cm AV Area Cont Eq vti 1.7 cm AV Area Cont Eq pk 1.8 cm MV Peak Velocity 90.1 cm/s MV Peak Gradient 3.2 mmHg MV Mean Velocity 40.4 cm/s MV Mean Gradient 1.0 mmHg Mitral E Point Velocity 64.2 cm/s Mitral A Point Velocity 85.9 cm/s Mitral E to A Ratio 0.7 MV PHT Velocity 82.5 cm/s MV Deceleration Dickey 362.0 cm/s MV Pressure Half Time 68.4 ms MV Area PHT 3.2 cm MV Deceleration Time 292.0 ms TR Peak Velocity 260.0 cm/s TR Peak Gradient 27.0 mmHg Right Atrial Pressure 5.0 mmHg Pulmonary Artery Systolic Pressu 32.0 mmHg Right Ventricular Systolic Press 32.0 mmHg PV Peak Velocity 96.5 cm/s PV Peak Gradient 3.7 mmHg PV Mean Velocity 64.8 cm/s PV Mean Gradient 2.0 mmHg PV Velocity Time Integral 21.6 cm LV E' Lateral Velocity 8.6 cm/s Mitral E to LV E' Lateral Ratio 7.5 LV E' Septal Velocity 6.5 cm/s Mitral E to LV E' Septal Ratio 9.8
[2017-09-29 14:00] VITALS: BP 142/70
--- NOTE | 2017-09-29 16:32 | Event Note ---
Event Note Event Note: S; paged by nurse pt having chest pain B: Patient is 76-year-old female with past medical history of hypertension and hyperlipidemia who presented to [facility] with her family with chief complaint of altered mental status and right-sided chest pain for last couple of days. She was placed in observation on telemetry floor for evaluation of atypical chest pain. Her confusion was attributed to possible baclofen overuse. She was also hypertensive up to 204/96 on presentation her blood pressure came down to 140/80 in the morning. A/R: I went in and evaluated the patient. She clearly appeared to be diaphoretic and reported pressure-like chest discomfort which was radiating to the jaw and to the left side. She said that she she is also feeling dizzy, shaky and felt the same as previous episode which happened earlier. She denies any epigastric pain , nausea, palpitations or shortness of breath. On review of systems she reported headache Vitals afebrile, HR 75, BP 190/90 Examination diaphoretic facial flushing, regular rate and rhythm normal S1-S2 lungs clear to auscultation bilaterally abdomen soft nontender nondistended bowel sounds intact Patient was given nitroglycerin 1, aspirin 325 mg. EKG done did not show any acute ST-T wave changes. Troponin levels were also drawn pending for now. Her presentation is concerning for unstable angina. I reached out to armoured car escort Dr. Maki. he aadvised to get patient's pain under control by nitroglycerin. She received nitroglycerin 2 making total of 3. Chest pain improved a little bit with initial nitroglycerin however did not budge even after receiving [address] Maki was informed again. On his recommendation I started patient on morphine. If the pain is not controlled with morphine he has to be informed again. Patient is currently on aspirin and statin and metoprolol. NSAID was discontinued earlier. her blood pressure improved after nitroglycerin, came down to 150/80. Before receiving morphine patient's blood pressure was 180/80, blood pressure. If patient continues to have pain , we will reach out to Dr. Maki consider addition of clopidogrel and anticoagulation after talking with the armoured car escort. Morphine should also help with the blood pressure. She is a candidate of stress test. We are going to repeat EKG and troponins at 8:00pm HOD Dr. Kunz was also informed.
[2017-09-29 21:08] VITALS: BP 150/84
[2017-09-30 06:48] VITALS: BP 120/60
[2017-09-30] MEDS ORDERED: ASPIRIN81 M4 PO ×2 (07:23→11:42)
[2017-09-30 07:24] VITALS: BP 88/52
--- NOTE | 2017-09-30 07:29 | Discharge Summary ---
Visit Information Visit Dates Admission Date: 09/29/17 Discharge Date: 09/30/17 Hospital Course Course Attending Physician: Kenzie Quijano MD Primary Care Physician: Stef TRACEY,[facility] Course: The patient is 76-year-old female with past medical history of hypertension and hyperlipidemia. She was brought in by the family for evaluation of altered mental status and right-sided chest pain. Vitals on presentation was significant for blood pressure of 204/96 which came down to 140//60 later in the morning. Admission labs were insignificant, so was chest x-ray and CT scan was also negative for any acute intracranial pathology. She was placed on observation on telemetry floor for treatment and evaluation of altered mental status which was most likely secondary to inappropriate use of baclofen which was recently prescribed to her for neck pain. As per patient's [id number] she might have taken double the dose in error. She denied any suicidal ideations and did not appear to be depressed. The altered mental status had resolved when admitting team evaluated the patient. During her stay on the telemetry floor she remained alert oriented. Baclofen has been discontinued on discharge. On admission patient gave history of atypical chest pain. 3 sets of troponins were negative and EKG did not show any acute ST-T wave changes. Cardiology was consulted and we proceeded with echocardiogram which was only positive for stage I diastolic dysfunction. On 09/29 evening patient had an episode of chest pain, radiating to jaw into the left side. Patient was clearly diaphoretic and was shaking. Her blood pressure at that time was 190/90. She received aspirin, sublingual nitroglycerin 3 along with morphine. Her pain resolved after that and her blood pressure normalized as well. 3 sets of troponins were again drawn which were negative and EKG 3 did not show any acute ST-T wave changes. It appeared that patient might have some underlying anxiety disorder hence received Ativan as well. Patient had an uneventful night after that. After discussion with the flat sorting machine clerk she is being discharged on aspirin, home dose of beta- brigitte, home dose of statin. Meloxicam has been discontinued. In addition we are going to give her Xanax 0.25 mg BID (10 pills) to be used very sparingly as needed for severe anxiety. Will benefit from stress test which is going to be performed as an outpatient. She has been provided a referral for the flat sorting machine clerk and instructed to call and make an appointment. She will require primary care and cardiology follow-up She was full code during her stay. Allergies: Coded Allergies: Penicillins (Intermediate, HIVES 09/28/17) Disposition Summary Disposition Principal Diagnosis: Atypical chest pain Additional Diagnosis: Altered mental status likely secondary to baclofen Discharge Disposition: home or self care Discharge Instructions General Discharge Information Code Status: Full Code Patient's Diet: Heart healthy Patient's Activity: As tolerated Follow-Up Instructions/Appts: Follow-up with primary care doctor and flat sorting machine clerk Medications at Discharge Discharge Medications: Stop taking the following medications: Meloxicam (Meloxicam) 15 MG TABLET ORAL DAILY Baclofen (Baclofen) 10 MG TABLET ORAL THREE TIMES DAILY Continue taking these medications: Metoprolol Tartrate (Metoprolol Tartrate) 25 MG TABLET 1 Tablet ORAL TWICE DAILY Comments: Last Taken:09/30/17 Time:1130 Simvastatin (Simvastatin*) 40 MG TABLET 1 Tablet ORAL Every night Comments: Last Taken:09/29/17 Time:5PM Ezetimibe (Zetia) 10 MG TABLET 1 Tablet ORAL DAILY Comments: Last Taken:09/30/17 Time:0800 Start taking the following new medications: Alprazolam (Xanax) 0.25 MG TABLET 1 Tablet ORAL 2 x Daily as needed as needed for Anxiety Qty = 10 No Refills Instructions: . Comments: Last Taken:09/30/17 Time:0900 Aspirin (Aspirin*) 81 MG TAB.CHEW 1 Tablet ORAL DAILY Qty = 30 No Refills Instructions: . Comments: Last Taken:09/30/17 Time:0800 Nitroglycerin (Nitrostat) 0.4 MG TAB.SUBL 1 Tablet SUBLINGUAL As Directed as needed for Chest pain Qty = 25 No Refills Instructions: . Comments: DATE: 09/29/17 TIME: 0900 1st sign of attack, can repeat every 5 mins, if no releif in 15 mins after 3 tablets, prompt medical attention Copies To: Sabino Finch MD; Shanthi TRACEY,[facility]
--- NOTE | 2017-09-30 07:29 | PN- Housestaff ---
Sumeet TRACEY,Kelly 09/30/17 0728: Subjective Follow-up For: Atypical chest pain Tele-Events Since Last Visit: Normal sinus rhythm with heart rate in 60s-70s Subjective: Seen and examined. Resting comfortably. Reports improvement in symptoms. Had an uneventful night. Chest pain resolved after morphine. Overnight also received Ativan for anxiety. Review of Systems Constitutional: Reports: see HPI. Objective Last 24 Hrs of Vital Signs/I&O Vital Signs Date Time Temp Pulse Resp B/P B/P Pulse O2 O2 Flow FiO2 Mean Ox Delivery Rate 09/30 0724 63 88/52 09/30 0648 98.0 66 20 120/60 93 Room Air 09/293 96 Nasal 2.0L Cannula 09/29 210 75 150/84 09/30 2107 98.4 75 18 150/84 98 Nasal 2.0L Cannula 09/29 1600 Nasal 2.0L Cannula 09/29 1400 97.4 53 20 142/70 96 09/29 0825 66 146/60 Intake & Output 09/30 0800 09/30 0000 09/29 1600 Intake Total 550 Output Total 500 200 900 Balance -500 -200 -350 Intake, Oral 550 Output, Urine 500 200 900 Physical Exam General Appearance: Alert, Cooperative, No Acute Distress Cardiovascular: Normal S1, Normal S2 Lungs: Clear to Auscultation Abdomen: Soft, No Tenderness Neurological: Normal Speech Current Medications: Current Medications Sig/Fernando Start time Last Medication Dose Route Stop Time Status Admin Acetaminophen 650 MG Q6P PRN 09/29 0145 AC 09/29 PO 1544 Aspirin 81 MG DAILY 09/30 0900 AC PO Aspirin 325 MG .STK-MED ONE 09/29 1612 DC PO 09/29 1613 Aspirin 325 MG ONCE ONE 09/29 1600 DC 09/29 PO 09/29 1601 1602 Atorvastatin Calcium 20 MG 1700 09/29 1700 AC 09/29 PO 1604 Ezetimibe 10 MG DAILY 09/29 0900 AC 09/29 PO 0825 Heparin Sodium 5,000 UNIT Q8 09/29 06 AC 09/30 (Porcine) SC 0536 Ibuprofen 400 MG Q6P PRN 09/29 0130 DC PO Lorazepam 0.5 MG ONCE ONE 09/29 1715 DC IV 09/29 1716 Metoprolol Tartrate 25 MG BID 09/29 09 AC 09/29 PO 210 Morphine Sulfate 1 MG Q6P PRN 09/29 1630 AC 09/30 IV 0017 Nitroglycerin 1 GM .STK-MED ONE 09/29 1612 DC TOP 09/29 1613 Nitroglycerin 0.5 GM ONCE ONE 09/29 1600 CAN TOP 09/29 1601 Nitroglycerin 0.4 MG Q 5 MINUTES X 3 DO.. 09/29 1600 AC 09/29 SL 1607 Last 24 Hrs of Lab/Indra Results Last 24 Hrs of Labs/Mics: Laboratory Tests 09/29/17 2110: Troponin I 0.05 09/29/17 1542: Troponin I 0.06 09/29/17 1255: Troponin I 0.06 Assessment/Plan Assessment: 76 YO F, Filipino speaking with PMH of HTN and HLD was brought to ED by her family with chief complaint of altered mental status and right-sided chest pain for last couple of days. Patient is currently placed in observation on telemetry floor for following reasons Atypical chest pain She had another episode of chest pain pressure-like sensation for discomfort located in the middle of the chest radiating to the jaw and to the left arm. She received nitroglycerin 3 and IV morphine 2. See event note. Her presentation is concerning for unstable angina -Serial EKG and troponins were negative -Echocardiograms positive for stage I diastolic dysfunction -Stress test outpatient vs inpatient -Cardiology on board -Continue aspirin started metoprolol #Hypertensive urgency: Patient's blood pressure during yesterday's episode was 190/90 which later came down to 150/70 most likely stress-induced -Continue home medications for now #Altered mental status: Her confusion has resolved -We will continue to hold her baclofen Full code/heart healthy diet/DVT prophylaxis with Lovenox Problem List: 1. Chest pain Pain Ratin Pain Location: chest pain Pain Goal: Pain 4 or less Pain Plan: prn Tomorrow's Labs & Rationales: none Lesly Viramontes MD 09/30/17 1012: Attending MD Review Statement Attending Statement Attending MD Statement: examined this patient, discuss w/resident/PA/INTERNAL COMBUSTION ENGINE INSPECTOR, agreed w/resident/PA/INTERNAL COMBUSTION ENGINE INSPECTOR, discussed with family, reviewed EMR data (avail), discussed with nursing, discussed with case mgmt, reviewed images Attending Assessment/Plan: 76-year-old primarily Filipino speaking female with past medical history of hypertension and hyperlipidemia who is here with initially what was thought to be in altered mental status secondary to inappropriate use of baclofen. The baclofen and meloxicam but recently prescribed by a physician and her daughter thought she may have doubled on it in error. She is also been having these episodes of chest pain. She has ruled out with serial enzymes and EKG. Yesterday she required 3 sublingual nitros and some morphine to settle the chest pain. We spoke to her at length with a Filipino ship captain and her daughter- in-law. It is evident that she has a lot of anxiety and being in the hospital out of her familiar surroundings is adding to her symptomatology. At this point given that she is ruled out with serial enzymes and EKG we discussed with Dr. Smart the covering director of accounting and the plan will be to discharge her on her beta brigitte ,statin and aspirin. I will give her a low-dose benzo-xanax 0.25mg twice a day to be used very sparingly and when necessary for severe anxiety. She will follow-up for an outpatient stress test. She and her [id number] clearly understand this.
[2017-09-30] MEDS ORDERED: NITROSTAT0.4 M1 SL ×2 (08:01→11:42)
--- NOTE | 2017-09-30 09:47 | Patient Discharge Instructions ---
Discharge Instructions General Discharge Information You were seen/treated for: Atypical chest Special Instructions: -Please follow-up with your primary care doctor after discharge -Please follow-up with internal control manager after discharge -You will need a stress test to monitor your heart function -You have been provided a referral and a number to contact Dr. Maki office please make an appointment as soon as possible for follow-up with cardiology and stress test Diet Recommended Diet: Heart Healthy Activity Activity Self Limited: Yes Acute Coronary Syndrome Inclusion Criteria At DC or during hospital stay patient has or had the following: ACS DIAGNOSIS No Discharge Core Measures Meds if any: Prescribed or Continued at Discharge Meds if any: NOT Prescribed or Continued at Discharge Congestive Heart Failure Inclusion Criteria At DC or during hospital stay patient has or had the following: CHF DIAGNOSIS No Discharge Core Measures Meds if any: Prescribed or Continued at Discharge Meds if any: NOT Prescribed or Continued at Discharge Cerebrovascular accident Inclusion Criteria At DC or during hospital stay patient has or had the following: CVA/TIA Diagnosis No Discharge Core Measures Meds if any: Prescribed or Continued at Discharge Meds if any: NOT Prescribed or Continued at Discharge Venous thromboembolism Inclusion Criteria VTE Diagnosis No VTE Type NONE VTE Confirmed by (Test) NONE Discharge Core Measures - Per Current guidelines, there needs to be overlap - treatment for the first 5 days of Warfarin therapy. - If discharged on Warfarin prior to 5 days of - overlap therapy, the patient will need to be - assessed for post discharge needs including - *Post discharge parental anticoagulation - *Warfarin and/or parental anticoagulation education - *Follow up date to check INR post discharge At least 5 days overlap therapy as Inpatient No Meds if any: Prescribed or Continued at Discharge Note: Overlap Therapy is Warfarin and Anticoagulant Meds if any: NOT Prescribed or Continued at Discharge
[2017-09-30] MEDS ORDERED: XANAX0.25 M1 PO ×2 (09:55→11:26)
--- NOTE | 2017-09-30 11:16 | PN- Cardiology ---
Subjective Subjective: Doing okay this morning. Anxious to go home. Had recurrent symptoms that last night but remains asymptomatic today with negative cardiac workup so far Objective Vital Signs and I&Os Vital Signs Date Time Temp Pulse Resp B/P B/P Pulse O2 O2 Flow FiO2 Mean Ox Delivery Rate 09/30 0724 63 88/52 09/30 0648 98.0 66 20 120/60 93 Room Air 09/29 2112 96 Nasal 2.0L Cannula 09/29 210 75 150/84 09/29 210 98.4 75 18 150/84 98 Nasal 2.0L Cannula 09/29 1600 Nasal 2.0L Cannula 09/29 1400 97.4 53 20 142/70 96 Intake & Output 09/30 1600 09/30 0800 09/30 0000 09/29 1600 09/29 0800 09/29 0000 Intake Total 550 220 Output Total 500 200 900 450 Balance -500 -200 -350 -230 Intake, Oral 550 220 Output, Urine 500 200 900 450 Patient 161 lb Weight Physical Exam: General Appearance: well developed/nourished, alert, awake, oriented Head: normal HEENT: Normal Neck: supple, JVP normal, carotid upstrokes normal bilaterally, no masses or thyromegaly Respiratory: chest non-tender, clear to auscultation and percussion bilaterally Cardiovascular: regular rate/rhythm, normal S1, S2, 1/6 systolic murmur Abdomen: normal bowel sounds, soft, non-tender Extremities: normal inspection, no edema Vascular: Pulses are 2+ and equal bilaterally Neurologic: Grossly normal/nonfocal Current Medications: Current Medications Sig/Fernando Start time Last Medication Dose Route Stop Time Status Admin Acetaminophen 650 MG Q6P PRN 09/29 0145 AC 09/29 PO 1544 Alprazolam 0.25 MG BID 09/30 1000 AC 09/30 PO 10/07 0959 1015 Aspirin 81 MG DAILY 09/30 0900 AC 09/30 PO 0901 Aspirin 325 MG .STK-MED ONE 09/29 1612 DC PO 09/29 1613 Aspirin 325 MG ONCE ONE 09/29 1600 DC 09/29 PO 09/29 1601 1602 Atorvastatin Calcium 20 MG 1700 09/29 1700 AC 09/29 PO 1604 Ezetimibe 10 MG DAILY 09/29 0900 AC 09/30 PO 0901 Heparin Sodium 5,000 UNIT Q8 09/29 0600 AC 09/30 (Porcine) SC 0536 Ibuprofen 400 MG Q6P PRN 09/29 0130 DC PO Lorazepam 0.5 MG ONCE ONE 09/29 1715 DC IV 09/29 1716 Metoprolol Tartrate 25 MG BID 09/30 2100 AC PO Metoprolol Tartrate 25 MG BID 09/29 0900 DC 09/29 PO 2109 Morphine Sulfate 1 MG Q6P PRN 09/29 1630 AC 09/30 IV 0017 Nitroglycerin 1 GM .STK-MED ONE 09/29 1612 DC TOP 09/29 1613 Nitroglycerin 0.5 GM ONCE ONE 09/29 1600 CAN [facility] 09/29 1601 Nitroglycerin 0.4 MG Q 5 MINUTES X 3 DO.. 09/29 1600 AC 09/29 SL 1607 Results Last 48 Hrs of Labs/Mics: Laboratory Tests 09/29/17 2110: Troponin I 0.05 09/29/17 1542: Troponin I 0.06 09/29/17 1255: Troponin I 0.06 09/29/17 0430: Anion Gap 7, Estimated GFR > 60, BUN/Creatinine Ratio 23.8, Magnesium 1.8, Troponin I 0.09, CBC w Diff NO MAN DIFF REQ, RBC 4.62, MCV 92.1, MCH 30.8, MCHC 33.4, RDW 13.5, MPV 9.3, Gran % 56.4, Lymphocytes % 35.6, Monocytes % 5.7, Eosinophils % 1.7, Basophils % 0.6, Absolute Granulocytes 4.7, Absolute Lymphocytes 3.0, Absolute Monocytes 0.5, Absolute Eosinophils 0.1, Absolute Basophils 0.1 09/28/17 2809: Urine Color STRAW, Urine Clarity CLEAR, Urine pH 6.5, Ur Specific [place] <= 1.005, Urine Protein NEG, Urine Ketones NEG, Urine Nitrite NEG, Urine Bilirubin NEG, Urine Urobilinogen 0.2, Ur Leukocyte Esterase NEG, Ur Microscopic EXAM NOT REQUIRED, Urine Hemoglobin NEG, Urine Glucose NEG 09/28/17 2235: Anion Gap 9, Estimated GFR > 60, BUN/Creatinine Ratio 30.0 H, Glucose 113 H, Hemoglobin A1c 6.0 H, Calcium 9.1, Total Bilirubin 0.4, AST 27, ALT 26, Alkaline Phosphatase 73, Troponin I 0.05, Total Protein 6.6, Albumin 3.6, Globulin 3.0, Albumin/Globulin Ratio 1.2, Triglycerides 122, Cholesterol 236 H, LDL Cholesterol, Calc 148 H, HDL Cholesterol 64 H, Cholesterol/HDL Ratio 4, Vitamin B12 359, 25-OH Vitamin D Total 16.4 L, Folate > 20.0 H, TSH &T3 &Free T4 Intrp 4.050, D-Dimer High Sensitivty < 200, CBC w Diff NO MAN DIFF REQ, RBC 4.72, MCV 91.4, MCH 30.3, MCHC 33.2, RDW 13.6, MPV 8.8, Gran % 44.7, Lymphocytes % 45.2, Monocytes % 6.8, Eosinophils % 2.9, Basophils % 0.4, Absolute Granulocytes 3.2, Absolute Lymphocytes 3.3, Absolute Monocytes 0.5, Absolute Eosinophils 0.2, Absolute Basophils 0 Assessment/Plan Assessment/Plan Assessment: 1. Chest discomfort syndrome-thus far, the patient's workup is negative with negative troponins and no significant ECG changes. The symptoms are also atypical. 2. Transient mental status changes 3. Hyperlipidemia 4. Vitamin D deficiency Recommendations: -At this point, the patient's workup has been negative. She is stable and asymptomatic at the moment. -Ambulate out of bed and monitor for any further symptoms. -If the patient remains asymptomatic, she can be discharged home today for further evaluation with Dr. Maki as an outpatient to include nuclear stress test, etc. -Discussed in detail with the patient. Continue telemetry? No
[2017-09-30 12:03] VITALS: BP 128/62
== END 2017-09-30 12:45 ==
LOC: ERH 21:46 → ERHI 09-29 00:57 → 1NO 09-29 00:57 → ENPENDDIS 09-30 11:33 → ENTRNSPT 09-30 12:30 → EDTRNSPT 09-30 12:32 → EDTRNSPTSTS 09-30 12:32 → 1NO 09-30 12:45 → CMPTRNSPT 09-30 13:26
PROVIDERS: Internal Medicine Interventional Cardiology; Physician Assistant
DX: R07.89 Other chest pain (principal); I16.0 Hypertensive urgency; E78.5 Hyperlipidemia, unspecified; R41.82 Altered mental status, unspecified; T42.8X5A Adverse effect of antiparkinsonism drugs and other central muscle-tone depressants, initial encounter; M54.2 Cervicalgia; Z79.82 Long term (current) use of aspirin; E55.9 Vitamin D deficiency, unspecified
CPT/HCPCS: 1328; 1530; 1748; 36592; 71046; 81003; 82436; 93005; 93010; 93306; 96372; 96374; 96375; 96376; 97116-GP; 97161-GP; G0378; G8978-GP; G8979-GP; G8980-GP; J1644; J3490